=== PATIENT | female | born 1955 | race African-American/Black ===

== ENCOUNTER 2021-03-10 12:18 | Inpatient (IN) ==
[2021-03-10] MEDS ORDERED: Dextrose Gel 15 GM/37.5 ML TUBE PO PRN ×2 (15:48)
[2021-03-10] MEDS ORDERED: *HR* Dextrose 50 % in Water (Vial) 50 ML VIAL IVP PRN (15:48)
[2021-03-10] MEDS ORDERED: D5% in Water 1,000 ML IVC PRN (15:48)
[2021-03-10] MEDS ORDERED: Budesonide/Formoterol 80/4.5 1 PUFF INH IH PRN (16:30)
[2021-03-10] MEDS: Insulin LISPRO 300 UNITS/3 ML VIAL SUBQ SCH ×2 (17:40→22:10)
[2021-03-10] MEDS: Apixaban 5 MG TABLET PO SCH (22:09)
[2021-03-10] MEDS: Metoprolol 100 MG TABLET PO SCH (22:09)
[2021-03-10] MEDS: Pregabalin 50 MG CAPSULE PO SCH (22:10)
[2021-03-10] MEDS: *HR* LORazepam 1 MG TABLET PO PRN (22:15)
[2021-03-11 06:53] LABS: Basophils % 0.1 %; Hematocrit 47.8 % (35.3-44.9); Hemoglobin 15.4 g/dL (11.5-15.4); Immature Granulocytes % 1.4 % (0-4); Lymphocytes # 1.4 K/mcL (0.6-4.6); Mean Corpuscular HGB Conc 32.2 g/dL (31.6-35.5); Mean Corpuscular Hemoglobin 30.4 pg (28.0-33.3); Mean Corpuscular Volume 94.5 fL (83.0-100.0); Mean Platelet Volume 10.5 fL (9.4-12.4); Monocytes # 0.8 K/mcL (0.0-1.3); Monocytes % 5.9 %; Neutrophils # 11.5 K/mcL (1.6-8.9); Platelet Count 253 K/mcL (140-400); Red Blood Count 5.06 M/mcL (3.82-4.97); Red Cell Distribution Width 13.2 % (11.5-14.5); Segmented Neutrophils % 82.6 %; White Blood Count 13.9 K/mcL (4.3-11.1)
[2021-03-11 07:06] LABS: Potassium 5.2 mEq/L (3.5-5.1)
[2021-03-11] MEDS: Apixaban 5 MG TABLET PO SCH ×2 (09:17→21:13)
[2021-03-11] MEDS: Metoprolol 100 MG TABLET PO SCH ×2 (09:17→21:13)
[2021-03-11] MEDS: lisinopriL 10 MG TABLET PO SCH (09:17)
[2021-03-11] MEDS: Pregabalin 50 MG CAPSULE PO SCH ×2 (09:17→21:13)
[2021-03-11] MEDS: Aspirin Enteric Coated 81 MG Tablet PO SCH (09:17)
[2021-03-11] MEDS: amLODIPine 5 MG TABLET PO SCH (09:17)
[2021-03-11] MEDS: *HR* Glimepiride 2 MG TABLET PO SCH (09:18)
[2021-03-11] MEDS: Insulin LISPRO 300 UNITS/3 ML VIAL SUBQ SCH ×4 (09:19→21:13)
[2021-03-11] MEDS: *HR* LORazepam 1 MG TABLET PO PRN ×2 (09:38→17:40)
[2021-03-11] MEDS: Tiotropium 10 INH DOSE IH SCH (09:58)
[2021-03-11] MEDS ORDERED: Mag Hydrox/Al Hydrox/Simeth 30 ML UDC PO PRN (20:14)
[2021-03-11] MEDS ORDERED: Simethicone 80 MG TAB.CHEW PO PRN (20:14)
[2021-03-12 05:08] LABS: Hematocrit 47.2 % (35.3-44.9); Mean Corpuscular HGB Conc 31.8 g/dL (31.6-35.5); Mean Corpuscular Hemoglobin 30.2 pg (28.0-33.3); Mean Platelet Volume 10.3 fL (9.4-12.4); Platelet Count 232 K/mcL (140-400); Red Blood Count 4.97 M/mcL (3.82-4.97); Red Cell Distribution Width 13.6 % (11.5-14.5); White Blood Count 16.6 K/mcL (4.3-11.1)
[2021-03-12 05:23] LABS: Alanine Aminotransferase 44 Units/L (7-52); Albumin 3.3 g/dL (3.5-5.7); Albumin/Globulin Ratio 1.9 (1.1-2.2); Alkaline Phosphatase 52 Units/L (34-104); Aspartate Amino Transferase 19 Units/L (13-39); BUN/Creatinine Ratio 34 (6-26); Bilirubin,Total 0.5 mg/dL (0.3-1.0); Blood Urea Nitrogen 39 mg/dL (8-23); Calcium 8.8 mg/dL (8.6-10.3); Carbon Dioxide 27 mEq/L (23-29); Chloride 105 mEq/L (98-107); Globulin 1.7 g/dL (2.4-3.5); Glucose 169 mg/dL (70-105); Magnesium 2.4 mg/dL (1.6-2.6); Osmolality,Calculated 297 (280-300); Potassium 4.9 mEq/L (3.5-5.1); Sodium 137 mEq/L (136-145); eGFR For African Americans 57 (> 60); eGFR For Non-African Americans 47 (> 60)
[2021-03-12] MEDS: Tiotropium 10 INH DOSE IH SCH (09:07)
[2021-03-12] MEDS: Aspirin Enteric Coated 81 MG Tablet PO SCH (09:21)
[2021-03-12] MEDS: Insulin LISPRO 300 UNITS/3 ML VIAL SUBQ SCH ×4 (09:21→21:49)
[2021-03-12] MEDS: Apixaban 5 MG TABLET PO SCH ×2 (09:21→21:49)
[2021-03-12] MEDS: amLODIPine 5 MG TABLET PO SCH (09:22)
[2021-03-12] MEDS: *HR* Glimepiride 2 MG TABLET PO SCH (09:23)
[2021-03-12] MEDS: lisinopriL 10 MG TABLET PO SCH (09:23)
[2021-03-12] MEDS: *HR* LORazepam 1 MG TABLET PO PRN ×2 (09:23→21:49)
[2021-03-12] MEDS: Pregabalin 50 MG CAPSULE PO SCH ×2 (09:23→21:48)
[2021-03-12] MEDS: Metoprolol 100 MG TABLET PO SCH ×2 (09:23→21:49)
[2021-03-12 13:14] LABS: C-Reactive Protein < 5 mg/L (Less than 10)
[2021-03-12 13:24] LABS: Ferritin 234 ng/mL (10-120)
[2021-03-12 16:25] LABS: Calcium 8.8 mg/dL (8.6-10.3)
[2021-03-13 08:27] VITALS: BP 129/81
[2021-03-13] MEDS: Insulin LISPRO 300 UNITS/3 ML VIAL SUBQ SCH (08:33)
[2021-03-13] MEDS: Tiotropium 10 INH DOSE IH SCH (09:37)
[2021-03-13] MEDS: Pregabalin 50 MG CAPSULE PO SCH (10:01)
[2021-03-13] MEDS: *HR* Glimepiride 2 MG TABLET PO SCH (10:01)
[2021-03-13] MEDS: lisinopriL 10 MG TABLET PO SCH (10:01)
[2021-03-13] MEDS: Metoprolol 100 MG TABLET PO SCH (10:01)
[2021-03-13] MEDS: Apixaban 5 MG TABLET PO SCH (10:01)
[2021-03-13] MEDS: Aspirin Enteric Coated 81 MG Tablet PO SCH (10:01)
[2021-03-13] MEDS: amLODIPine 5 MG TABLET PO SCH (10:02)
== END 2021-03-13 13:24 | disposition home health service (06) | DRG 178 ==
LOC: INPGRE 14:42
PROVIDERS: ADMIT Family Medicine; ATTEND Family Medicine